=== PATIENT | female | born 1950 | race Caucasian/White ===

== ENCOUNTER 2016-09-12 08:36 | Observation (INO) | payer MEDICARE, MEDICAID ==
--- NOTE | 2016-09-12 09:19 | C.PDOC ---
History Of Present Illness Hx obtained via cloth classer 66-year-old female, presents to the emergency department with complaints of new onset epigastric pain since last night. Patient notes constant radiation to mid back., that is associated with nausea. Patient denies Hx of gallstone, PUD or other GI disease. (+)hx of hypercholesterolemia, no known CAD. No fever VIA TRANS NEW ONSET EPIG PAIN SINCE LAST NIGHT. CONSTANT RADIATION MID BACK. +NAUSEA. DENIES HO GALLSTONE, PUD OR OTHER GI DX. HO HYPERCHOLES, NO KNOWN CAD. PSH CSECT. NO FEVER EXAM MILD DIST NONTOXIC HEENT ANICTERIC MMM ABD +EPIG TEND MOD SOFT NO R/G REMAINDER NEG. Time Seen by Provider: 09/12/16 09:06 Chief Complaint (Nursing): Abdominal Pain History Per: Patient History/Exam Limitations: no limitations Past Medical History Reviewed: Historical Data, Nursing Documentation, Vital Signs Vital Signs: Last Vital Signs Temp 97.8 F 09/12/16 12:23 Pulse 69 09/12/16 12:23 Resp 18 09/12/16 12:23 BP 113/67 09/12/16 12:23 Pulse Ox 99 09/12/16 12:23 - Medical History PMH: Hyperlipidemia Family History: States: Unknown Family Hx - Social History Hx Tobacco Use: Yes Hx Alcohol Use: No Hx Substance Use: No - Immunization History Hx Tetanus Toxoid Vaccination: No Hx Influenza Vaccination: Yes Hx Pneumococcal Vaccination: No Review Of Systems Except As Marked, All Systems Reviewed And Found Negative. Constitutional: Negative for: Fever, Chills Cardiovascular: Negative for: Chest Pain, Palpitations Gastrointestinal: Positive for: Nausea, Abdominal Pain Musculoskeletal: Positive for: Back Pain Neurological: Negative for: Weakness, Numbness Physical Exam - Physical Exam Appears: Non-toxic, No Acute Distress Skin: Warm, Dry, No Rash Head: Atraumatic, Normacephalic Eye(s): bilateral: Other (anicetric) Nose: Normal Oral Mucosa: Moist Lips: Normal Appearing Neck: Normal ROM Respiratory: No Accessory Muscle Use Gastrointestinal/Abdominal: Soft, Tenderness (+EPIG TEND MOD SOFT), No Guarding , No Rebound Extremity: Normal ROM Neurological/Psych: Oriented x3, Normal Speech ED Course And Treatment - Laboratory Results Result Diagrams: 09/12/16 10:19 09/12/16 10:19 ECG: Interpreted By Me ECG Interpretation: Normal Rate From EC O2 Sat by Pulse Oximetry: 98 Pulse Ox Interpretation: Normal - Radiology CXR: Interpreted by Me CXR Interpretation: Yes: No Acute Disease ED OBSERVATION Discharge: Yes Date of observation admission: 09/12/16 Time of observation admission: 09:15 - Observation admission statement Patient is being placed in observation because:: ABD PAIN, NAUSEA - Goals of Observation Goals of observation are:: NEG ACUTE ABD, SX IMPROVE - Progress Note Progress Note: 09/12/16 13:12 FEELS BETTER, VSS. CT, US NO ACUTE FINDINGS. DIET MOD, ANTACIDS, FU PMD Disposition Counseled Patient/Family Regarding: Studies Performed, Diagnosis, Need For Followup, Rx Given - Disposition Disposition: HOME/ ROUTINE Disposition Time: 13:12 Condition: IMPROVED - Clinical Impression Clinical Impression: Abdominal pain - Scribe Statement The provider has reviewed the documentation as recorded by the Vladislav Elias All medical record entries made by the Sandraibfer were at my direction and personally dictated by me. I have reviewed the chart and agree that the record accurately reflects my personal performance of the history, physical exam, medical decision making, and the department course for this patient. I have also personally directed, reviewed, and agree with the discharge instructions and disposition.
[2016-09-12] MEDS ORDERED: Sodium Chloride 0.9% 1,000 ML IV ONE (09:21)
[2016-09-12 10:26] LABS: BASO # 0.1 K/uL (0.0-0.2); BASO % 1.2 % (0.0-2.0); EOS # 0.5 K/uL (0.0-0.7); HEMATOCRIT 42.8 % (34.0-47.0); LYMPH % 22.2 % (20.0-40.0); MEAN CELL VOLUME 90.3 fL (81.0-99.0); MEAN CORPUSCULAR HEMOGLOBIN 29.6 pg (27.0-31.0); MEAN CORPUSCULAR HGB CONC 32.8 g/dL (33.0-37.0); MEAN PLATELET VOLUME 8.7 fL (7.2-11.7); MONO # 0.6 K/uL (0.0-0.8); RED CELL DISTRIBUTION WIDTH 13.4 % (11.5-14.5); WHITE BLOOD COUNT 9.1 K/uL (4.8-10.8)
[2016-09-12] MEDS ORDERED: Sodium Chloride 0.9% 1,000 ML ONE (10:26)
[2016-09-12 10:31] LABS: RBC URINE 2 /hpf (0-3); URINE BACTERIA RARE (<OCC); URINE BILIRUBIN NEGATIVE (NEGATIVE); URINE BLOOD NEGATIVE (NEGATIVE); URINE COLOR Yellow (YELLOW); URINE GLUCOSE (UA) NORMAL (Normal); URINE KETONE NEGATIVE (NEGATIVE); URINE LEUKOCYTE ESTERASE TRACE Leu/uL (Negative); URINE PROTEIN NEGATIVE (NEGATIVE); URINE UROBILINOGEN NORMAL mg/dL (0.2-1.0); WBC URINE 5 /hpf (0-5)
[2016-09-12 10:41] LABS: CHLORIDE 101 mmol/L (98-107); POTASSIUM 4.3 mmol/L (3.6-5.2); SODIUM 141 mmol/L (132-148)
[2016-09-12 10:43] LABS: BILIRUBIN,TOTAL 0.5 mg/dL (0.2-1.3); CARBON DIOXIDE 29 mmol/L (22-30); GFR AFRICAN-AMERICAN > 60
[2016-09-12 10:44] LABS: ALB/GLOB RATIO 1.2 (1.0-2.1); ALKALINE PHOSPHATASE 61 U/L (38-126); ALT/SGPT 28 U/L (9-52); AST/SGOT 28 U/L (14-36); BLOOD UREA NITROGEN 10 mg/dL (7-17); CALCIUM 8.9 mg/dl (8.6-10.4); GLUCOSE,RANDOM 88 mg/dL (65-105)
[2016-09-12] MEDS ORDERED: Iodixanol 320 MG/ML 100 ML BOTTLE IV ONE (10:50)
--- NOTE | 2016-09-12 11:36 | CT ---
PROCEDURE: CT Abdomen and Pelvis with contrast HISTORY: Epigastric, abdominal pain. COMPARISON: 12/02/2013. TECHNIQUE: Contrast dose: 100 cc Visipaque 320. Radiation dose: Total exam DLP = 748.46. MGy-cm. This CT exam was performed using one or more of the following dose reduction techniques: Automated exposure control, adjustment of the mA and/or kV according to patient size, and/or use of iterative reconstruction technique. FINDINGS: LOWER THORAX: Unremarkable. LIVER: Hepatic steatosis. No focal masses. No intrahepatic bile duct dilatation or perihepatic ascites. GALLBLADDER AND BILE DUCTS: Unremarkable. PANCREAS: Unremarkable. No gross lesion or ductal dilatation. SPLEEN: Unremarkable. ADRENALS: Unremarkable. No mass. KIDNEYS AND URETERS: Unremarkable. No hydronephrosis. No solid mass. VASCULATURE: Unremarkable. No aortic aneurysm. BOWEL: Thickening of the wall of the stomach is diffuse. Absence of oral contrast precludes further assessment. In the proper clinical setting, gastritis can assume this appearance. Diverticulosis without an acute inflammatory component. There is focal thickening of the wall of the sigmoid at the site of severe diverticular disease. Sigmoid mass is not excluded based on these findings. Again absence of oral contrast precludes optimal assessment. APPENDIX: Normal appendix. PERITONEUM: Unremarkable. No free fluid. No free air. LYMPH NODES: Unremarkable. No enlarged lymph nodes. BLADDER: Unremarkable. REPRODUCTIVE: Unremarkable. BONES: No acute fracture. OTHER FINDINGS: None. IMPRESSION: 1. Gastric wall thickening suggestive, but in the absence of oral contrast not diagnostic, of gastritis. 2. Diverticulosis. Focal thickening of the sigmoid of uncertain etiology/significance. Again the absence of oral contrast precludes optimal assessment. Elective followup advised. Otherwise no acute/significant findings apparent
--- NOTE | 2016-09-12 11:37 | US ---
HISTORY: Abdominal pain. COMPARISON: None. TECHNIQUE: Sonographic evaluation of the right upper quadrant of the abdomen. FINDINGS: LIVER: Measures 15.6 cm in length. Patent portal vein. Portal venous flow: Hepatopetal. Unremarkeable echogenicity of the liver parenchyma. No mass. No intrahepatic bile duct dilatation. GALLBLADDER: Unremarkable. No gallstones. COMMON BILE DUCT: Measures 4.2 mm. No stones. No dilatation. PANCREAS: Unremarkable as visualized. No mass. No ductal dilatation. RIGHT KIDNEY: Measures 4.2 x 10.7 cm in length. Normal echogenicity. No calculus, mass, or hydronephrosis. AORTA: No aneurysmal dilatation. IVC: Unremarkable. OTHER FINDINGS: None . IMPRESSION: No significant or acute findings to account for/ related to the clinical presentation.
--- NOTE | 2016-09-12 11:39 | RAD ---
PROCEDURE: CHEST RADIOGRAPH, 1 VIEW. Portable study 09:25. HISTORY: abd pain COMPARISON: 08/30/2013. FINDINGS: LUNGS: Clear. PLEURA: No pneumothorax or pleural fluid seen. CARDIOVASCULAR: Normal. OSSEOUS STRUCTURES: No significant abnormalities. VISUALIZED UPPER ABDOMEN: Normal. OTHER FINDINGS: None. IMPRESSION: No active disease. No acute/significant interval changes. Concordant results with the preliminary interpretation rendered by the emergency department physician procedure.
[2016-09-12 12:24] VITALS: BP 113/67; PULSE 69; RESP 18; TEMP 97.8
[2016-09-12 13:13] VITALS: O2SAT 98
--- NOTE | 2016-09-13 17:14 | CARD ---
APPROVED REPORT EKG Measurement Heart [id number] ND [id number] [id number] <Conclusion> Normal sinus rhythm Normal ECG
== END 2016-09-12 13:12 | disposition home or self-care (01) ==
LOC: C.ER 08:36 → C.9OBSV 09:15
PROVIDERS: ADMIT Emergency Medicine; ATTEND Emergency Medicine
DX: R10.13 Epigastric pain (principal); E78.00 Pure hypercholesterolemia, unspecified; Z87.891 Personal history of nicotine dependence
CPT/HCPCS: 36415; 71010; 74177; 76705; 80053; 81001; 83690; 84484; 85025; 96374; C9113; G0378; J2270; J2405; J7040; Q9967